=== PATIENT | female | born 1940 | race Caucasian/White ===

== ENCOUNTER 2019-11-29 16:11 | Inpatient (IN) | payer BC, OTHER, MEDICAID ==
[~2019-11-29] VITALS: Ht 160 cm; Wt 53.2 kg
[2019-11-29] VITALS (11 sets, daily range): BP systolic 90–115; BP diastolic 40–54
--- NOTE | 2019-11-29 16:11 | NUR ---
Received telephone call from Stella from [facility]. Stella to fax pt's POLST to ER.
--- NOTE | 2019-11-29 16:15 | NUR ---
Per EMS pt's daughter will bring in information about the pt's home medications.
[2019-11-29] MEDS ORDERED: IV NORMAL SALINE 500 ML BAG IV ONE (16:30)
--- NOTE | 2019-11-29 16:30 | NUR ---
THOMAS (which states FULL CODE) received via fax from Stella and handed to .
[2019-11-29 16:46] LABS: CARBON DIOXIDE 29 mmol/L (21-32); CHLORIDE 98 mmol/L (98-107); CREATININE 2.8 mg/dL (0.6-1.3); GLUCOSE 66 mg/dL (74-106); POTASSIUM 3.9 mmol/L (3.5-5.1); UREA NITROGEN, BLOOD 44 mg/dL (7-18)
[2019-11-29 16:47] LABS: BASOPHILS % (AUTO) 0.5 % (0.0-2.0); EOSINOPHILS # (AUTO) 0.1 K/uL (0.0-0.7); EOSINOPHILS % (AUTO) 0.8 % (0.0-7.0); HEMATOCRIT 29.5 % (31.2-41.9); HEMOGLOBIN 9.5 g/dL (10.9-14.3); LYMPHOCYTES # (AUTO) 1.4 K/uL (20.0-40.0); LYMPHOCYTES % (AUTO) 23.1 % (20.5-51.5); MEAN CORPUSCULAR HEMOGLOBIN 28.3 uug (24.7-32.8); MEAN CORPUSCULAR HGB CONC 32 g/dL (32.3-35.6); MONOCYTES # (AUTO) 0.8 K/uL (2.0-10.0); MONOCYTES % (AUTO) 13.3 % (0.0-11.0); NEUTROPHILS # (AUTO) 3.9 K/uL (1.8-8.9); NEUTROPHILS % (AUTO) 62.3 % (38.5-71.5); PLATELET COUNT (AUTO) 317 K/uL (179-408); RED BLOOD CELL COUNT(AUTO) 3.35 MIL/uL (3.63-4.92); WHITE BLOOD COUNT (AUTO) 6.3 K/uL (3.8-11.8)
[2019-11-29 16:48] LABS: *BILIRUBIN,URIN 1+ (NEGATIVE); *BLOOD, URINE NEGATIVE (NEGATIVE); *CLARITY,URINE SLIGHTLY CLOUDY (CLEAR); *COLOR,URINE AMBER (YELLOW); *KETONES,URINE NEGATIVE (NEGATIVE); *UROBILINOGEN,URINE 0.2 E.U./dl (NORMAL); LEUKOCYTE ESTERASE ,URINE NEGATIVE (NEGATIVE); NITRITE, URINE NEGATIVE (NEGATIVE); UGLUCOSE NEGATIVE (NEGATIVE)
[2019-11-29 16:52] LABS: ALANINE AMINOTRANSFERASE 33 U/L (14-59); ALKALINE PHOSPHATASE 77 U/L (50-136); ASPARTATE AMINOTRANSFERASE 31 U/L (15-37); BILIRUBIN,DIRECT 0.2 mg/dL (0.0-0.2); BILIRUBIN,TOTAL 0.6 mg/dL (0.2-1.0); TOTAL PROTEIN, SERUM 6.6 g/dL (6.4-8.2)
[2019-11-29 17:06] LABS: BACTERIA,URINE MANY /HPF (NONE SEEN); MUCUS,URINE MODERATE /LPF (0-FEW); SQUAMOUS EPITHELIAL CELL,UR FEW /HPF (NONE SEEN); URINE AMORPHOUS URATE MODERATE /HPF; WBC,URINE 0-3 /HPF (0-3)
--- NOTE | 2019-11-29 17:28 | NUR ---
EPIC panel call requested, awaiting call back from Cr[facility]
--- NOTE | 2019-11-29 17:58 | NUR ---
Daughter at bedside accompanying patient.
--- NOTE | 2019-11-29 18:10 | NUR ---
Pt's daughter states she forgot pt's home medication list at home, she will go home later and get it.
[2019-11-29] MEDS ORDERED: DOPamine IV DRIP 400 MG/250ML 250 ML ONE (18:24)
[2019-11-29] MEDS ORDERED: ALBUTEROL SULFATE 2.5 MG/3 ML NEBU NEB ONE (18:30)
[2019-11-29] MEDS ORDERED: DOPamine IV DRIP 400 MG/250ML 250 ML IV ONE (18:30)
[2019-11-29] MEDS ORDERED: IPRATROPIUM BROMIDE 0.5 MG/2.5 ML NEBU NEB ONE (18:30)
[2019-11-29] MEDS ORDERED: IPRATROPIUM BROMIDE 0.5 MG/2.5 ML NEBU ONE (18:33)
[2019-11-29] MEDS ORDERED: ALBUTEROL SULFATE 2.5 MG/3 ML NEBU ONE (18:33)
--- NOTE | 2019-11-29 20:14 | NUR ---
Report given to JAMAL Walker CCU
[2019-11-29] MEDS ORDERED: INSULIN REGULAR, HUMAN 300 UNIT/3 ML VIAL SQ PRN (21:30)
[2019-11-29] MEDS ORDERED: DEXTROSE 50% 50 ML DISP.SYRIN IV PRN (21:30)
[2019-11-29] MEDS ORDERED: BLOOD SUGAR DIAGNOSTIC 1 EACH STRIP VI SCH (21:30)
--- NOTE | 2019-11-29 21:30 | NUR ---
RECEIVED PT. OPENS HER EYES TO VERBAL STIMULI, RESTLESS, ALL EXTREMITIES ARE STRONG. ON O2 3L NC W/ O2 SAT OF 100%. ON DOPAMINE DRIP @ 4MCQ/KG/MIN ON LAC. BLOOD SUGAR BY ACCUCHECK ORDERED BY Matilda SMILEY, BS-40, D50% 1 AMP GIVEN ORDERED.D5NS @ 100CC/HR HUNG. DAUGHTER CAME & OBTAINED INFORMATIONS.
[2019-11-29] MEDS: IV D5/ 0.9% NACL 1,000 ML IV PRN (21:41)
[2019-11-29] MEDS ORDERED: CEFTRIAXONE /D5W 50ML IVPB **ER PYXIS IV ONE (21:56)
[2019-11-29] MEDS: CEFTRIAXONE 1 G in IV DEXTROSE 5% 50 ML IV SCH (22:10)
[2019-11-29] MEDS: LEVETIRACETAM 500 MG/5 ML LIQUID UDC NG SCH (22:15)
--- NOTE | 2019-11-29 22:16 | NUR ---
RECHECKED BS AFTER D50% GIVEN UP TO 117.
[2019-11-30] VITALS (65 sets, daily range): BP systolic 82–146; BP diastolic 31–111
[2019-11-30] MEDS: ALBUTEROL SULFATE 1.25 MG/3 ML NEBU NEB SCH ×4 (00:21→19:23)
[2019-11-30] MEDS: IPRATROPIUM BROMIDE 0.5 MG/2.5 ML NEBU NEB SCH ×4 (00:21→19:23)
[2019-11-30] MEDS: BLOOD SUGAR DIAGNOSTIC 1 EACH STRIP VI SCH ×5 (00:33→23:29)
--- NOTE | 2019-11-30 01:15 | NUR ---
MIDLINE INSERTED ON JANY BY MIGUEL NICE
[2019-11-30] MEDS ORDERED: DOPamine IV DRIP 400 MG/250ML 250 ML IV PRN (03:30)
[2019-11-30] MEDS: HALOPERIDOL 1 MG TABLET PO SCH ×3 (05:25→12:17)
--- NOTE | 2019-11-30 05:26 | NUR ---
AM CARE DONE. REPOSITIONED ON HER BACK W/ HOB ELEVATED.
[2019-11-30 05:36] LABS: CARBON DIOXIDE 28 mmol/L (21-32); CHLORIDE 101 mmol/L (98-107); CREATININE 1.9 mg/dL (0.6-1.3); GLUCOSE 119 mg/dL (74-106); PHOSPHOROUS 4.4 mg/dL (2.5-4.9); POTASSIUM 3.5 mmol/L (3.5-5.1); UREA NITROGEN, BLOOD 39 mg/dL (7-18)
[2019-11-30 05:46] LABS: MAGNESIUM 1.2 mg/dL (1.8-2.4)
[2019-11-30 06:47] LABS: BASOPHILS % (AUTO) 0.4 % (0.0-2.0); EOSINOPHILS # (AUTO) 0.1 K/uL (0.0-0.7); EOSINOPHILS % (AUTO) 1.1 % (0.0-7.0); HEMATOCRIT 30.2 % (31.2-41.9); LYMPHOCYTES # (AUTO) 1.1 K/uL (20.0-40.0); LYMPHOCYTES % (AUTO) 17.4 % (20.5-51.5); MEAN CORPUSCULAR HEMOGLOBIN 29.5 uug (24.7-32.8); MEAN CORPUSCULAR HGB CONC 33 g/dL (32.3-35.6); MEAN CORPUSCULAR VOLUME 89.3 fL (75.5-95.3); MONOCYTES # (AUTO) 1.4 K/uL (2.0-10.0); MONOCYTES % (AUTO) 23.5 % (0.0-11.0); NEUTROPHILS # (AUTO) 3.5 K/uL (1.8-8.9); NEUTROPHILS % (AUTO) 57.6 % (38.5-71.5); PLATELET COUNT (AUTO) 317 K/uL (179-408); RED BLOOD CELL COUNT(AUTO) 3.39 MIL/uL (3.63-4.92)
[2019-11-30 07:40] LABS: BAND % (MANUAL) 8 % (0-10); EOSINOPHILS % (MANUAL) 3 % (0-8); LYMPHOCYTES % (MANUAL) 22 % (20-40); MONOCYTES % (MANUAL) 19 % (2-10); NEUTROPHILS % (MANUAL) 48 % (42-75)
[2019-11-30] MEDS: FLUTICASONE/VILANTEROL 1 EACH BLST.W.DEV INH SCH (09:00)
[2019-11-30] MEDS: LEVETIRACETAM 500 MG/5 ML LIQUID UDC NG SCH ×2 (10:10→20:39)
--- NOTE | 2019-11-30 10:30 | NUR ---
Patient seen by Neurologist services, Dr. Hair, report given.
[2019-11-30] MEDS: MAGNESIUM SULFATE/D5W 100 ML IV SCH ×2 (10:44→11:54)
[2019-11-30] MEDS ORDERED: IV NS 1000 ML 1,000 ML IV ONE (12:00)
--- NOTE | 2019-11-30 13:00 | NUR ---
Patient restless and agitated climbing out of bed unsupervised, and at this very time patient forcefully removed, cruz catheter. Attending notified.
--- NOTE | 2019-11-30 13:30 | NUR ---
Attending N.P in the unit to see and examine patient, report given no new orders received.
[2019-11-30] MEDS ORDERED: LORAZEPAM 2 MG/1 ML VIAL IV PRN (15:30)
[2019-11-30] MEDS: IV D5/ 0.9% NACL 1,000 ML IV PRN ×2 (16:17→23:29)
--- NOTE | 2019-11-30 19:30 | NUR ---
rounds made patient in bed alert to name ,on and off follow simple commands other bhatia confused , breathing even and unlabored on 0xygen 3 liters /min nasal cannula saturation 95% ,100% rr 12 to 18.hob up .turned and reposition patient .off dopamine drip sbp >90 mm/hg . will continue to monitor v/s -bp .
[2019-11-30] MEDS: CEFTRIAXONE 1 G in IV DEXTROSE 5% 50 ML IV SCH (21:25)
--- NOTE | 2019-11-30 21:28 | NUR ---
patient getting OOB ,removing lines and removing equipment ,unable to educate patient confused and doesn't follow commands .Ativan given prn x1 see emar . continue with bilateral mittens and follow protocol .
--- NOTE | 2019-11-30 21:30 | NUR ---
patient incontinent of stool ,changed soiled linens and gown ,perineal care done ,send stool for OB, urine collected send for urine random /urine na /osmolality .
--- NOTE | 2019-11-30 22:00 | NUR ---
due Keppra po given and tolerated medication with diet [place].hob up . aspiration precaution observed .
[2019-11-30 22:07] LABS: *OCCULT BLOOD STOOL POSITIVE (NEGATIVE)
[2019-11-30 22:13] LABS: *CREATININE,URINE 51.2 mg/dL (30-125); *URINE TOTAL PROTEIN RANDOM 21.9 mg/dL (<150/24HR)
[2019-12-01] VITALS (15 sets, daily range): BP systolic 110–164; BP diastolic 46–77
[2019-12-01] MEDS: HALOPERIDOL 1 MG TABLET PO SCH (00:15)
[2019-12-01] MEDS: IPRATROPIUM BROMIDE 0.5 MG/2.5 ML NEBU NEB SCH ×4 (02:29→23:31)
[2019-12-01] MEDS: ALBUTEROL SULFATE 1.25 MG/3 ML NEBU NEB SCH ×4 (02:30→23:32)
--- NOTE | 2019-12-01 04:30 | NUR ---
am care done ,bath patient had another bm moderate in amt mixed with urine changed soiled linens and gown . turned and reposition . scds to bilateral lower extremities . oral are done .
[2019-12-01 05:07] LABS: BASOPHILS % (AUTO) 0.4 % (0.0-2.0); EOSINOPHILS % (AUTO) 0.7 % (0.0-7.0); HEMATOCRIT 27.7 % (31.2-41.9); HEMOGLOBIN 9.1 g/dL (10.9-14.3); LYMPHOCYTES # (AUTO) 0.7 K/uL (20.0-40.0); LYMPHOCYTES % (AUTO) 10.6 % (20.5-51.5); MEAN CORPUSCULAR HEMOGLOBIN 29.1 uug (24.7-32.8); MEAN CORPUSCULAR HGB CONC 33 g/dL (32.3-35.6); MEAN CORPUSCULAR VOLUME 88.4 fL (75.5-95.3); NEUTROPHILS # (AUTO) 5.1 K/uL (1.8-8.9); NEUTROPHILS % (AUTO) 74.3 % (38.5-71.5); PLATELET COUNT (AUTO) 315 K/uL (179-408); RED BLOOD CELL COUNT(AUTO) 3.13 MIL/uL (3.63-4.92); WHITE BLOOD COUNT (AUTO) 6.9 K/uL (3.8-11.8)
[2019-12-01 05:14] LABS: MAGNESIUM 1.4 mg/dL (1.8-2.4); PHOSPHOROUS 2.6 mg/dL (2.5-4.9); POTASSIUM 4.1 mmol/L (3.5-5.1)
[2019-12-01] MEDS: BLOOD SUGAR DIAGNOSTIC 1 EACH STRIP VI SCH ×4 (05:14→23:24)
[2019-12-01] MEDS ORDERED: Z GUARD REMEDY PASTE 57 GM TUBE TOP PRN (07:15)
[2019-12-01] MEDS: LEVETIRACETAM 500 MG/5 ML LIQUID UDC NG SCH ×2 (08:32→20:39)
[2019-12-01] MEDS: FLUTICASONE/VILANTEROL 1 EACH BLST.W.DEV INH SCH (08:33)
[2019-12-01] MEDS: Z GUARD REMEDY PASTE 57 GM TUBE TOP SCH ×2 (08:35→20:38)
[2019-12-01] MEDS ORDERED: INSULIN REGULAR, HUMAN 300 UNIT/3 ML VIAL SQ PRN ×2 (12:15→12:45)
[2019-12-01] MEDS ORDERED: DEXTROSE 50% 50 ML DISP.SYRIN IV PRN ×2 (12:15→12:45)
[2019-12-01] MEDS ORDERED: INSULIN REGULAR, HUMAN 300 UNITS/3 ML VIAL SQ PRN (12:15)
--- NOTE | 2019-12-01 12:25 | NUR ---
Neurology services, Dr. Hair in the unit to see and examine patient, report given see order hx.
[2019-12-01] MEDS: IV NS 1000 ML 1,000 ML IV PRN (13:38)
[2019-12-01] MEDS: MAGNESIUM SULFATE/D5W 100 ML IV SCH ×2 (13:39→15:04)
[2019-12-01] MEDS ORDERED: BLOOD SUGAR DIAGNOSTIC 1 EACH STRIP VI SCH (16:30)
--- NOTE | 2019-12-01 20:00 | NUR ---
RECEIVED PT RESPONDING VERBALLY W/ PERIODS OF CONFUSION & DISORIENTATION. ON O2 @ 3LNC W/ O2 SAT OF 100%. IVF D5NS @ 75CC/HR ON JANY MIDLINE. HEP LOCK ON LAC INTACT & PATENT. C-SCOPE SR. NOT IN ANY DISTRESS.
--- NOTE | 2019-12-01 21:00 | NUR ---
HAD BOWEL MOVEMENT & INCONTINENT OF URINE, BEDBATH GIVEN. REPOSITIONED ON HER SIDE WITH HOB ELEVATED.
[2019-12-01] MEDS: CEFTRIAXONE 1 G in IV DEXTROSE 5% 50 ML IV SCH (22:26)
--- NOTE | 2019-12-01 23:20 | NUR ---
CALLED Matilda SMILEY RE: PT SEVERE AGITATION W/ ORDERS.
[2019-12-01] MEDS: LORAZEPAM 1 MG TABLET PO PRN (23:38)
--- NOTE | 2019-12-01 23:38 | NUR ---
ATIVAN 1MG GIVEN PO WITH APPLE SAUCE., NO DIFFICULTY OF SWALLOWING NOTED.
[2019-12-01] MEDS ORDERED: HALOPERIDOL 0.5 MG TABLET ONE (23:42)
[2019-12-02] VITALS (7 sets, daily range): BP systolic 116–179; BP diastolic 47–71
[2019-12-02] MEDS: ALBUTEROL SULFATE 1.25 MG/3 ML NEBU NEB SCH ×4 (01:30→19:18)
[2019-12-02] MEDS: IPRATROPIUM BROMIDE 0.5 MG/2.5 ML NEBU NEB SCH ×4 (01:30→19:18)
--- NOTE | 2019-12-02 05:00 | NUR ---
AM CARE DONE REFUSED ORAL CARE. INCONTINENT OF URINE. REPOSITIONED SELF FOR COMFORTS.
[2019-12-02 05:03] LABS: BASOPHILS % (AUTO) 0.8 % (0.0-2.0); EOSINOPHILS # (AUTO) 0.1 K/uL (0.0-0.7); EOSINOPHILS % (AUTO) 1.2 % (0.0-7.0); HEMATOCRIT 25.4 % (31.2-41.9); HEMOGLOBIN 8.6 g/dL (10.9-14.3); LYMPHOCYTES # (AUTO) 0.7 K/uL (20.0-40.0); LYMPHOCYTES % (AUTO) 15.1 % (20.5-51.5); MEAN CORPUSCULAR HEMOGLOBIN 29.6 uug (24.7-32.8); MEAN CORPUSCULAR HGB CONC 34 g/dL (32.3-35.6); MEAN CORPUSCULAR VOLUME 87.5 fL (75.5-95.3); MONOCYTES # (AUTO) 0.5 K/uL (2.0-10.0); MONOCYTES % (AUTO) 10.6 % (0.0-11.0); NEUTROPHILS # (AUTO) 3.1 K/uL (1.8-8.9); NEUTROPHILS % (AUTO) 72.3 % (38.5-71.5); PLATELET COUNT (AUTO) 312 K/uL (179-408); WHITE BLOOD COUNT (AUTO) 4.3 K/uL (3.8-11.8)
[2019-12-02 05:11] LABS: CREATININE 0.7 mg/dL (0.6-1.3); MAGNESIUM 1.4 mg/dL (1.8-2.4); PHOSPHOROUS 1.8 mg/dL (2.5-4.9); POTASSIUM 3.1 mmol/L (3.5-5.1)
[2019-12-02] MEDS: IV NS 1000 ML 1,000 ML IV PRN (05:37)
[2019-12-02] MEDS: BLOOD SUGAR DIAGNOSTIC 1 EACH STRIP VI SCH ×3 (05:43→20:26)
--- NOTE | 2019-12-02 07:47 | NUR ---
Ambulance transportation arranged by [place] Tootie massey. will be olive picker at [address] To [facility] donor services technician aware and agreeable to with olive picker time and take patient for procedure upon arrival. trip # [phone].
[2019-12-02] MEDS: HALOPERIDOL 1 MG TABLET PO SCH ×2 (08:47→20:22)
[2019-12-02] MEDS: LEVETIRACETAM 500 MG/5 ML LIQUID UDC NG SCH ×2 (08:47→20:20)
[2019-12-02] MEDS: Z GUARD REMEDY PASTE 57 GM TUBE TOP SCH ×2 (08:48→20:23)
[2019-12-02] MEDS: FLUTICASONE/VILANTEROL 1 EACH BLST.W.DEV INH SCH (08:50)
--- NOTE | 2019-12-02 09:04 | NUR ---
Attending called to be notified of sustained sbp above 160's on pt's resting state. Orders to continue with current care plan received.
[2019-12-02] MEDS: POTASSIUM CHLORIDE 50 ML IV SCH ×2 (09:08→09:48)
[2019-12-02] MEDS: MAGNESIUM SULFATE/D5W 100 ML IV SCH ×2 (09:09→10:12)
--- NOTE | 2019-12-02 10:00 | NUR ---
Patient seen by cardiology services, Dr. Rehman new orders received. See order hx.
--- NOTE | 2019-12-02 11:08 | NUR ---
Patient been pickle processor by EMT to be taken to [facility] for MRI to the brain. vitals: HR of 50, 166/69, rr 13 and saturation of 100% on 2LNC. patient AAOx1. sleeping on off. IV Ml to RUE patent.
[2019-12-02] MEDS ORDERED: POTASSIUM CHLORIDE 20 MEQ POWDER PACKET PO ONE (11:30)
--- NOTE | 2019-12-02 11:31 | NUR ---
patient left unit losartan not available, receiving rn. post procedure informed to follow up with care plan.
--- NOTE | 2019-12-02 12:01 | NUR ---
WOUND CARE CONSULT: PT WAS TAKEN BY EMT FOR MRI. UNABLE TO SEE PT FOR SKIN ASSESSMENT AT THIS TIME. PER ADMISSION PHOTOS, THERE ARE DEEP TISSUE INJURIES OF SACRAL AREA, RT HIP AND BILATERAL HEELS WITH MULTIPLE AREAS OF SKIN DISCOLORATION PER ADMISSION PHOTOS, PRESENT ON ADMISSION. WILL SEE PT PT CONDITION PERMITS.
--- NOTE | 2019-12-02 13:00 | NUR ---
RECEIVED PATIENT FROM CCU. PATIENT ALERT AND ORIENTED X1. NO ACUTE DISTRESS NOTED. PATIENT WITH MITTENS DUE TO TRYING TO PULL OUT LINES. SITUATED PATIENT IN BED. BED IN LOWEST POSITION, SIDE RAILS UP X2, CALL LIGHT WITHIN REACH, BED ALARM ON. WILL CONTINUE TO MONITOR.
[2019-12-02] MEDS: LOSARTAN POTASSIUM 25 MG TABLET PO SCH (13:40)
[2019-12-02] MEDS ORDERED: NEUTRA PHOS PACKET PO ONE (15:45)
[2019-12-02] MEDS ORDERED: DEXTROSE 50% 50 ML DISP.SYRIN IV PRN (18:30)
--- NOTE | 2019-12-02 18:41 | NUR ---
PATIENT RESTED THROUGHOUT THE REST OF THE SHIFT. NO ACUTE DISTRESS NOTED. PATIENT DENIES PAIN AND DISCOMFORT. SAFETY MEASURES PROVIDED. DAUGHTER AT BEDSIDE. WILL ENDORSE TO ONCOMING NURSE.
[2019-12-02] MEDS: LORAZEPAM 1 MG TABLET PO PRN (19:04)
--- NOTE | 2019-12-02 19:20 | NUR ---
Received patient lying in bed. AAOx1, mainly confused and disoriented, with periods of anxiety noted. Redirected PRN. Hand mittens in place. Check for circulation. No signs or symptoms of SOB. On O2 at 2LPM via NC in place. Right upper arm midline intact and patent. IVF infusing. NSR on tele at 61/min. Safety measure initiated. Continue to monitor.
--- NOTE | 2019-12-02 20:01 | NUR ---
RECEIVED ORDER FROM ROBERT AVILEZ FOR TYLENOL 650MG Q6 HRS PRN FOR PAIN. ORDER CARRIED OUT.
[2019-12-02] MEDS: ACETAMINOPHEN 325 MG TABLET PO PRN (20:40)
[2019-12-02] MEDS: INSULIN REGULAR, HUMAN 300 UNIT/3 ML VIAL SQ PRN (20:46)
[2019-12-02] MEDS ORDERED: INSULIN REGULAR, HUMAN 300 UNIT/3 ML VIAL SQ PRN (21:00)
[2019-12-02] MEDS: CEFTRIAXONE 1 G in IV DEXTROSE 5% 50 ML IV SCH (21:02)
--- NOTE | 2019-12-02 21:16 | NUR ---
Patient BP was 179/47 around 1999, recheck again and was still 168/65. Informed JAVA GROOVY DEVELOPER daysi and stated that she will put in some orders.Awaiting for new order.
[2019-12-02] MEDS ORDERED: hydrALAZINE HCL 10 MG TABLET PO ONE (21:30)
[2019-12-02] MEDS: TEMAZEPAM 7.5 MG CAPSULE PO SCH (21:33)
[2019-12-03] VITALS: BP 159/54
[2019-12-03] MEDS: IPRATROPIUM BROMIDE 0.5 MG/2.5 ML NEBU NEB SCH ×4 (00:34→19:19)
[2019-12-03] MEDS: ALBUTEROL SULFATE 1.25 MG/3 ML NEBU NEB SCH ×4 (00:35→19:19)
[2019-12-03] MEDS: LORAZEPAM 1 MG TABLET PO PRN ×2 (03:48→21:13)
[2019-12-03 04:00] VITALS: BP 135/84
[2019-12-03] MEDS: IV NS 1000 ML 1,000 ML IV PRN (04:53)
--- NOTE | 2019-12-03 06:30 | NUR ---
AAOx1, mainly confused and disoriented, with periods of anxiety and restlessness. Lorazepam 1mg PO given PRN per order.Redirection and reorientation provided. Hand mittens in place. No signs or symptoms of pain SOB. On O2 at 2LPM via NC in place. Right upper arm midline intact and patent. IVF infusing. No adverse reaction noted from IV ABX. NSR on tele at 72/min. Safety measure maintained. Daughter at bedside.
[2019-12-03] MEDS: BLOOD SUGAR DIAGNOSTIC 1 EACH STRIP VI SCH ×4 (06:31→20:21)
--- NOTE | 2019-12-03 07:25 | NUR ---
RECEIVED PATIENT SLEEPING IN BED. NO ACUTE DISTRESS NOTED. DAUGHTER AT BEDSIDE. BED IN LOWEST POSITION, SIDE RAILS UP X2, CALL LIGHT WITHIN REACH, BED ALARM ON. WILL CONTINUE TO MONITOR.
[2019-12-03] MEDS: Z GUARD REMEDY PASTE 57 GM TUBE TOP SCH ×2 (09:22→23:46)
[2019-12-03] MEDS: LOSARTAN POTASSIUM 25 MG TABLET PO SCH (09:22)
[2019-12-03] MEDS: HALOPERIDOL 1 MG TABLET PO SCH ×2 (09:22→20:06)
[2019-12-03] MEDS: LEVETIRACETAM 500 MG/5 ML LIQUID UDC NG SCH ×2 (09:22→20:06)
[2019-12-03] MEDS: FLUTICASONE/VILANTEROL 1 EACH BLST.W.DEV INH SCH (09:22)
[2019-12-03 11:30] VITALS: BP 164/61
[2019-12-03] MEDS ORDERED: HALOPERIDOL 0.5 MG TABLET PO PRN (13:00)
--- NOTE | 2019-12-03 13:58 | NUR ---
WOUND CARE CONSULT: PT PRESENTS WITH MULTIPLE SKIN ISSUES INCLUDING RT HIP VESICULAR LESION. DEEP TISSUE IN EVOLUTION TO SACRUM, MULTIPLE AREAS OF BRUISING/DISCOLORATION AND DRY ABRASIONS, PRESENT ON ADMISSION. DEFER TO MD FOR RT HIP LESION. NURSERY SUPERVISOR LEFT [facility] FOR DR ATKINS. RECOMMENDATIONS MADE FOR WOUND CARE AND SKIN PROTECTION. DISCUSSED WITH NURSING STAFF. WOULD NOT RECOMMEND LOW AIRLOSS MATTRESS OVERLAY DUE TO SAFETY CONCERNS. PT MOVES HER LEGS ALMOST CONSTANTLY. WILL SEE PRN. IN AGREEMENT WITH PLAN OF CARE. Addendum: 12/03/19 at 1401 by TARAH FINLEY RN Amended: Links added.
[2019-12-03] MEDS ORDERED: LOSARTAN POTASSIUM 25 MG TABLET PO ONE (15:00)
[2019-12-03] MEDS ORDERED: ACET-2154 PO (15:12)
[2019-12-03] MEDS ORDERED: LORA-259 PO (15:13)
[2019-12-03] MEDS ORDERED: ASPI-612 PO (15:13)
[2019-12-03] MEDS ORDERED: GABA-532 PO (15:19)
[2019-12-03] MEDS ORDERED: METF-441 PO (15:19)
[2019-12-03] MEDS ORDERED: CLOP75TA33 PO (15:19)
[2019-12-03] MEDS ORDERED: HYDR12.5 PO (15:19)
[2019-12-03] MEDS ORDERED: METO25TA6 PO (15:19)
[2019-12-03] MEDS ORDERED: EZET10TA32 PO (15:19)
[2019-12-03] MEDS ORDERED: FURO20TA4 PO (15:19)
[2019-12-03] MEDS ORDERED: HALO2TAB PO (15:19)
[2019-12-03 16:00] VITALS: BP 164/46
--- NOTE | 2019-12-03 18:22 | NUR ---
PATIENT RESTED THROUGHOUT DAY. NO ACUTE DISTRESS NOTED. PATIENT CONFUSED THROUGHOUT SHIFT. PATIENT RESTLESS. PATIENT DENIES PAIN AND DISCOMFORT. SAFETY MEASURES PROVIDED. WILL ENDORSE TO ONCOMING NURSE.
--- NOTE | 2019-12-03 19:45 | NUR ---
PATIENT AWAKE WITH CONFUSION, IN BED SLEEPING INTERMITTENTLY, HAND MITTENS IN PLACE, CHECK FOR PLACEMENT AND CIRCULATION. PATIENT IN TELE MONITOR SINUS RHYTHM AT THIS TIME, PATIENT HAS NO COMPLAIN OF PAIN AT THIS TIME. PATIENT NOTED PULLING OUT MIDLINE, FREQUENT VISUAL CHECK DONE, PATIENT HAS EPISODE OF YELLING AND SCREAMING FOR NO REASON, BED ALARM IS ON. CONT TO MONITOR.
[2019-12-03] MEDS: INSULIN REGULAR, HUMAN 300 UNIT/3 ML VIAL SQ PRN (20:26)
[2019-12-03 20:27] VITALS: BP 175/65
[2019-12-03] MEDS: TEMAZEPAM 7.5 MG CAPSULE PO SCH (21:13)
--- NOTE | 2019-12-03 21:13 | NUR ---
PATIENT ALERT BUT CONFUSED, PATIENT TRIES TO CLIMB OUT OF BED, PULLING OUT IV LINES, RISK FOR FALL AND INJURY, PATIENT UNDIRECTABLE. PATIENT YELLS AND SCREAMS, ATTENDS ALL NEEDS, KEPT CLEAN AND DRY, GIVEN FLUIDS, GIVEN SNACKS STILL YELLS AND SCREAM. ADMINISTER ATIVAN 1MG, AND RESTORIL FOR INSOMNIA. WILL CONT TO MONITOR.
[2019-12-03] MEDS: ACETAMINOPHEN 325 MG TABLET PO PRN (21:14)
--- NOTE | 2019-12-03 21:14 | NUR ---
PATIENT COMPLAIN OF GEN BODY PAIN, GIVEN TYLENOL 650MG PO AWAITING FOR RESPONSE.
[2019-12-03] MEDS: CEFTRIAXONE 1 G in IV DEXTROSE 5% 50 ML IV SCH (22:32)
[2019-12-04] MEDS: IPRATROPIUM BROMIDE 0.5 MG/2.5 ML NEBU NEB SCH ×4 (00:42→22:39)
[2019-12-04] MEDS: ALBUTEROL SULFATE 1.25 MG/3 ML NEBU NEB SCH ×4 (00:42→22:39)
--- NOTE | 2019-12-04 02:45 | NUR ---
PATIENT SLEEP INTERMITTENTLY, PATIENT FIGHT HER SLEEP, HAD MULTIPLE TIMES CLIMBS OUT OF BED, PATIENT BANG AND HITS ARMS IN SIDE RAILS, YELLS AND SCREAMS FOR NO REASON, PATIENT BEHAVIOR UNREDIRECTABLE. PATIENT HAD BM RENDERED GOOD MK CARE, TX DONE ON MK AREA REDNESS, CONT TO REORIENT PATIENT, BED ALARM IS ON, CONT VISUAL CHECK, RISK FOR FALL AND INJURY.
[2019-12-04 04:00] VITALS: BP 154/68
[2019-12-04] MEDS: BLOOD SUGAR DIAGNOSTIC 1 EACH STRIP VI SCH ×4 (05:39→21:10)
--- NOTE | 2019-12-04 06:31 | NUR ---
PATIENT SLEEP INTERMITTENTLY, PATIENT FIGHTS HER SLEEP, NO SOB NO CHEST PAIN NOTED, TELE MONITOR SINUS RHYTHM, WITH EPISODE OF V TACH BUT NOT SUSTAINABLE. PATIENT HAS MULTIPLE EPISODE OF AGITATION, TRIES TO HIT STAFF, MULTIPLE TIME OF CLIMBING OUT OF BED, MULTIPLE TIME TRIES TO PULLED OUT IV LINES, FREQUENT VISUAL CHECK DONE, PATIENT ALSO HAS LOOSE BM X3 UNABLE TO COLLECT STOOL DUE TO TOO WATERY. GIVEN PATIENT FLUIDS AND TOLERATE WELL, RENDERED GOOD MK CARE. CONT TO MONITOR.
[2019-12-04 06:41] LABS: BASOPHILS # (AUTO) 0.1 K/uL (0.0-8.0); EOSINOPHILS # (AUTO) 0.1 K/uL (0.0-0.7); EOSINOPHILS % (AUTO) 0.9 % (0.0-7.0); HEMATOCRIT 29.7 % (31.2-41.9); HEMOGLOBIN 9.8 g/dL (10.9-14.3); LYMPHOCYTES % (AUTO) 16.2 % (20.5-51.5); MEAN CORPUSCULAR HEMOGLOBIN 28.3 uug (24.7-32.8); MEAN CORPUSCULAR HGB CONC 33 g/dL (32.3-35.6); MEAN CORPUSCULAR VOLUME 85.6 fL (75.5-95.3); MONOCYTES # (AUTO) 0.5 K/uL (2.0-10.0); MONOCYTES % (AUTO) 7.4 % (0.0-11.0); NEUTROPHILS # (AUTO) 4.7 K/uL (1.8-8.9); NEUTROPHILS % (AUTO) 74.5 % (38.5-71.5); PLATELET COUNT (AUTO) 420 K/uL (179-408); RED BLOOD CELL COUNT(AUTO) 3.48 MIL/uL (3.63-4.92); WHITE BLOOD COUNT (AUTO) 6.4 K/uL (3.8-11.8)
[2019-12-04 06:51] LABS: CREATININE 0.7 mg/dL (0.6-1.3); PHOSPHOROUS 1.9 mg/dL (2.5-4.9); POTASSIUM 3.2 mmol/L (3.5-5.1)
--- NOTE | 2019-12-04 07:16 | NUR ---
PATIENT MAG LEVEL 1.0, ENDORSED TO NEXT SHIFT.
[2019-12-04] MEDS: LEVETIRACETAM 500 MG/5 ML LIQUID UDC NG SCH ×2 (08:00→20:21)
--- NOTE | 2019-12-04 08:00 | NUR ---
Received pt. resting in chair alert oriented to self. With bilateral mittens on. Pt. is receiving breathing treatment and is on 2 L nc. Pt. appears in no distress. Pt. denies pain. Safety measures in place. call light within reach. will continue to monitor pt.
[2019-12-04] MEDS: Z GUARD REMEDY PASTE 57 GM TUBE TOP SCH ×2 (08:01→20:22)
[2019-12-04] MEDS ORDERED: HALOPERIDOL 1 MG TABLET PO PRN (08:15)
[2019-12-04] MEDS ORDERED: LOSARTAN POTASSIUM 50 MG TABLET PO SCH (09:00)
[2019-12-04] MEDS ORDERED: LOSARTAN POTASSIUM 25 MG TABLET PO SCH (09:00)
[2019-12-04] MEDS: HALOPERIDOL 1 MG TABLET PO SCH ×2 (09:05→20:21)
--- NOTE | 2019-12-04 09:10 | NUR ---
Came into room pt. removed both mittens and pulled out extension attachment for midline. Reinserted new extension attachment and flushed line. The line flushes well and has good blood return. Rewrapped midline with kerlix and put back mittens on. Will sit infront of pt.'s room to prevent pt. from pulling out midline. Reported critical lab value of Mg. to Doctor with no new orders at this time.
[2019-12-04] MEDS: FLUTICASONE/VILANTEROL 1 EACH BLST.W.DEV INH SCH (09:51)
[2019-12-04] MEDS: LORAZEPAM 1 MG TABLET PO PRN ×2 (10:04→23:13)
[2019-12-04 10:58] VITALS: BP 148/97
[2019-12-04] MEDS ORDERED: POTASSIUM CHLORIDE 20 MEQ TAB.PRT.SR PO ONE (11:30)
[2019-12-04] MEDS: MAGNESIUM SULFATE/D5W 100 ML IV SCH ×4 (12:04→15:49)
[2019-12-04] MEDS: ACETAMINOPHEN 325 MG TABLET PO PRN (12:24)
[2019-12-04] MEDS: INSULIN REGULAR, HUMAN 300 UNIT/3 ML VIAL SQ PRN ×3 (12:25→20:26)
[2019-12-04 15:06] VITALS: BP 142/72
[2019-12-04] MEDS ORDERED: NEUTRA PHOS PACKET PO ONE (16:30)
--- NOTE | 2019-12-04 17:52 | NUR ---
Pt. cooperative with plan of care. Pt. took all medication. PRN ativan given early in day for agitation. PRN haldol given for agitation requested by Dr. Francois. Pt. has been pulling off mittens and hitting hands against will chair. Reoriented pt. to unit and used calming measures. Midline still in place. pt on 1 L NC. Safety measures in place. call light within reach. will continue to monitor pt.
--- NOTE | 2019-12-04 20:00 | NUR ---
Received patient sitting in the will chair. 2:1 is by the door. A/O x1. Denies pain or SOB. TELE SR at 61. In O2 1L NC. Mittens are on for safety and because patient was pulling on lines. [facility] assessment done, noted multiple scratches on bilateral upper and lower ext. Midline on the right upper arm, patent and intact. Safety initiated. Call light within reach. Will closely monitor.
[2019-12-04] MEDS: TEMAZEPAM 7.5 MG CAPSULE PO SCH (20:21)
[2019-12-04] MEDS: LOSARTAN POTASSIUM 50 MG TABLET PO SCH (20:39)
[2019-12-04] MEDS: CEFTRIAXONE 1 G in IV DEXTROSE 5% 50 ML IV SCH (21:10)
--- NOTE | 2019-12-04 23:16 | NUR ---
Patient is restless, banging on the will chair. Ativan given. Will continue to monitor.
[2019-12-05] MEDS: LOSARTAN POTASSIUM 50 MG TABLET PO SCH ×2 (00:57→08:00)
[2019-12-05] MEDS: IPRATROPIUM BROMIDE 0.5 MG/2.5 ML NEBU NEB SCH ×3 (01:30→14:54)
[2019-12-05] MEDS: ALBUTEROL SULFATE 1.25 MG/3 ML NEBU NEB SCH ×3 (01:30→14:54)
--- NOTE | 2019-12-05 05:46 | NUR ---
Patient remains restless t/o shift. Gave patient mittens break t/o shift. Patient continues to pull lines but redirectable. TELE SR SB at 60. Remains O2 1L NC. Vital signs stable. Midline on the right upper arm, patent and intact. Good urine output. All meds given as ordered. All needs met.
[2019-12-05] MEDS: BLOOD SUGAR DIAGNOSTIC 1 EACH STRIP VI SCH ×3 (06:35→16:56)
[2019-12-05 06:39] VITALS: BP 176/74
[2019-12-05 06:40] LABS: CREATININE 0.8 mg/dL (0.6-1.3); POTASSIUM 3.9 mmol/L (3.5-5.1)
--- NOTE | 2019-12-05 06:45 | NUR ---
BP remains elevated. HR is at 66. made aware. New orders given.
[2019-12-05] MEDS ORDERED: hydrALAZINE HCL 10 MG TABLET PO SCH (07:00)
--- NOTE | 2019-12-05 07:41 | NUR ---
Patient resting comfortably in bed at this time. Stable condition. No signs of distress. Mittens on due to pulling of lines - Will assess and monitor throughout shift. 1:1 sitter at bedside for safety. No signs of agitation at this time. Patient appears calm. SR on telemetry. Safety measures implemented. Will continue to monitor closely throughout shift.
[2019-12-05] MEDS: FLUTICASONE/VILANTEROL 1 EACH BLST.W.DEV INH SCH (08:00)
[2019-12-05] MEDS: LEVETIRACETAM 500 MG/5 ML LIQUID UDC NG SCH (08:00)
--- NOTE | 2019-12-05 08:00 | NUR ---
Hydralazine administered @0730 by [facility] shift lead nurse. BP rechecked, continues to be elevated. Losartan 50 mg PO will be administered for routine morning medication. Will re-check
[2019-12-05] MEDS: Z GUARD REMEDY PASTE 57 GM TUBE TOP SCH (08:01)
[2019-12-05] MEDS: HALOPERIDOL 1 MG TABLET PO SCH (08:01)
[2019-12-05] MEDS: INSULIN REGULAR, HUMAN 300 UNIT/3 ML VIAL SQ PRN ×3 (08:04→16:58)
[2019-12-05 08:09] VITALS: BP 194/63
[2019-12-05 08:38] VITALS: BP 187/68
[2019-12-05 09:55] VITALS: BP_SYST 163; BP_SYST 166; BP_DIAS 63; BP_DIAS 88
[2019-12-05 10:57] VITALS: BP 164/69
[2019-12-05 15:01] VITALS: BP 137/61
--- NOTE | 2019-12-05 17:10 | NUR ---
1:1 sitter continues to be at bedside for safety. Safety measures implemented. Awaiting for home hospice for patient to arrive for patient to be properly discharged.
--- NOTE | 2019-12-05 18:10 | NUR ---
PATIENT DISCHARGED SAFELY AT THIS TIME WITH AMBULANCE. BEING TRANSFERRED HOME BY AMBULANCE (HOME WITH HOSPICE). MEDICATION RECONCILIATION GIVEN TO PATIENT (AMBULANCE). DISCHARGE PAPERWORK COMPLETED AND ALSO PROVIDED TO PATIENT. MIDLINE KATIE REMOVED, ID-BAND REMOVED, TELEMETRY BOX RETURNED. SAFETY MEASURES IMPLEMENTED. DISCHARGED FROM HOSPITAL SAFELY WITH AMBULANCE.
[2019-12-05] MEDS ORDERED: AMLODIPINE 5 MG TABLET PO SCH (21:00)
== END 2019-12-05 18:10 | disposition hospice, home (50) | DRG 682 ==
LOC: ER 16:11 → TELE3 18:19 → CCU 20:19 → TELE3 12-02 12:49
PROVIDERS: ADMIT Nurse Practitioner Acute Care; ATTEND Nurse Practitioner Acute Care
PROC: 05H933Z Insertion of Infusion Device into Right Brachial Vein, Percutaneous Approach (ICD-10-PCS; principal; 2019-11-30)
DX: N17.0 Acute kidney failure with tubular necrosis (principal); E43 Unspecified severe protein-calorie malnutrition; G93.41 Metabolic encephalopathy; E87.1 Hypo-osmolality and hyponatremia; N39.0 Urinary tract infection, site not specified; J96.10 Chronic respiratory failure, unspecified whether with hypoxia or hypercapnia; J98.11 Atelectasis; E86.0 Dehydration; J44.9 Chronic obstructive pulmonary disease, unspecified; Z86.73 Personal history of transient ischemic attack (TIA), and cerebral infarction without residual deficits; I10 Essential (primary) hypertension; F01.50 Vascular dementia, unspecified severity, without behavioral disturbance, psychotic disturbance, mood disturbance, and anxiety; R00.1 Bradycardia, unspecified; E10.9 Type 1 diabetes mellitus without complications; Z79.4 Long term (current) use of insulin; F17.210 Nicotine dependence, cigarettes, uncomplicated; D63.8 Anemia in other chronic diseases classified elsewhere; E10.649 Type 1 diabetes mellitus with hypoglycemia without coma; I65.29 Occlusion and stenosis of unspecified carotid artery; Z95.820 Peripheral vascular angioplasty status with implants and grafts; F29 Unspecified psychosis not due to a substance or known physiological condition; I70.0 Atherosclerosis of aorta; Z99.81 Dependence on supplemental oxygen; R56.9 Unspecified convulsions; I95.9 Hypotension, unspecified; L89.156 Pressure-induced deep tissue damage of sacral region
CPT/HCPCS: 36415; 51702; 70030-TC; 70551; 71045; 76770; 83605; 83735; 84100; 84156; 84300; 85025; 85730; 87040; 87086; 93005; 93307; 93880; 94640; 94664; A4217; A4663; C1758; G0378; J0696; J1265; J1815; J2060; J3475; J3480; J3490; J3590; J7030; J7042; J7060

== ENCOUNTER 2020-06-26 13:46 | Inpatient (IN) | payer OTHER, MEDICAID ==
[~2020-06-26] VITALS: Ht 165.1 cm; Wt 46.7 kg
[~2020-06-26 13:46] MED LIST: ACET-2154 PO; ASPI-612 PO; CLOP75TA33 PO; EZET10TA32 PO; FURO20TA4 PO; GABA-532 PO; HALO2TAB PO; HYDR12.5 PO; LORA-259 PO; METF-441 PO; METO25TA6 PO
--- NOTE | 2020-06-26 13:52 | NUR ---
Pt BIB [facility], [facility], reports that Pt's caregiver passed out leaving pt alone -- could not leave pt in place w/o supervision. Pt seems confused but did not seem to have any complaints or distress.
--- NOTE | 2020-06-26 14:02 | NUR ---
Pt's daughter was the sales supervisor w/syncope -- CEASAR REDDY [phone].
[2020-06-26 14:24] LABS: BASOPHILS % (AUTO) 0.6 % (0.0-2.0); EOSINOPHILS % (AUTO) 0.1 % (0.0-7.0); HEMOGLOBIN 12.8 g/dL (10.9-14.3); LYMPHOCYTES # (AUTO) 0.7 K/uL (20.0-40.0); LYMPHOCYTES % (AUTO) 8.7 % (20.5-51.5); MEAN CORPUSCULAR HEMOGLOBIN 27.2 uug (24.7-32.8); MEAN CORPUSCULAR HGB CONC 33 g/dL (32.3-35.6); MEAN CORPUSCULAR VOLUME 82.9 fL (75.5-95.3); MONOCYTES # (AUTO) 0.4 K/uL (2.0-10.0); MONOCYTES % (AUTO) 4.7 % (0.0-11.0); NEUTROPHILS # (AUTO) 6.6 K/uL (1.8-8.9); NEUTROPHILS % (AUTO) 85.9 % (38.5-71.5); PLATELET COUNT (AUTO) 272 K/uL (179-408); RED BLOOD CELL COUNT(AUTO) 4.71 MIL/uL (3.63-4.92); WHITE BLOOD COUNT (AUTO) 7.7 K/uL (3.8-11.8)
[2020-06-26] MEDS ORDERED: CLONIDINE HCL 0.1 MG TABLET PO ONE (14:30)
[2020-06-26] MEDS ORDERED: CLONIDINE HCL 0.1 MG TABLET ONE (14:31)
[2020-06-26 14:32] LABS: BILIRUBIN,DIRECT 0.1 mg/dL (0.0-0.2); BILIRUBIN,TOTAL 0.7 mg/dL (0.2-1.0); CREATININE 0.9 mg/dL (0.6-1.3); POTASSIUM 4.1 mmol/L (3.5-5.1); TOTAL PROTEIN, SERUM 6.2 g/dL (6.4-8.2)
[2020-06-26] MEDS ORDERED: LEVE500T9 PO (14:35)
[2020-06-26] MEDS ORDERED: TEMA7.5C PO (14:35)
[2020-06-26] MEDS ORDERED: ALBU1.25 NEB (14:35)
[2020-06-26] MEDS ORDERED: IPRA0.2S48 NEB (14:35)
[2020-06-26] MEDS ORDERED: BLOO-668 IN (14:35)
[2020-06-26] MEDS ORDERED: ALBU1.257 NEB (14:35)
[2020-06-26] MEDS ORDERED: INSU100V28 SQ (14:35)
[2020-06-26] MEDS ORDERED: HALO2TAB PO (14:35)
[2020-06-26] MEDS ORDERED: FLUT1BLS IH (14:35)
[2020-06-26] MEDS ORDERED: LOSA25TA27 PO (14:35)
[2020-06-26] MEDS ORDERED: PANTOPRAZOLE SODIUM 40 MG TABLET.DR PO ONE (14:45)
[2020-06-26] MEDS ORDERED: ASPIRIN 81 MG TAB.CHEW PO ONE (14:45)
[2020-06-26] MEDS ORDERED: PANTOPRAZOLE SODIUM 40 MG VIAL IV ONE (15:00)
[2020-06-26] MEDS ORDERED: ASPIRIN 81 MG TAB.CHEW ONE (15:25)
[2020-06-26] MEDS ORDERED: PANTOPRAZOLE SODIUM 40 MG VIAL ONE (15:26)
--- NOTE | 2020-06-26 16:13 | NUR ---
Called report to JAMAL Clarke. Will transport.
[2020-06-26 16:51] VITALS: BP 147/83
--- NOTE | 2020-06-26 17:11 | NUR ---
80 YEAR OLD FEMALE RECEIVED FROM ER VIA [facility] TO ROOM 306 FOR [place] ,PT IS NONVERBAL CALL LIGHT WITH IN REACH MD CALLED FOR ADMISSION ORDER
[2020-06-26] MEDS ORDERED: NITROGLYCERIN 0.4 MG/TAB BOTTLE SL PRN (17:30)
[2020-06-26] MEDS ORDERED: MORPHINE SULFATE 2 MG/1 ML DISP.SYRIN IV PRN (17:30)
[2020-06-26] MEDS ORDERED: ONDANSETRON 4 MG/2 ML VIAL IV PRN (17:30)
[2020-06-26] MEDS ORDERED: MAGNESIUM HYDROXIDE 30 ML LIQUID UDC PO PRN (17:30)
[2020-06-26] MEDS ORDERED: ACETAMINOPHEN 325 MG TABLET PO PRN (17:30)
[2020-06-26] MEDS ORDERED: Z GUARD REMEDY PASTE 57 GM TUBE TOP PRN (17:30)
[2020-06-26] MEDS ORDERED: hydrALAZINE HCL 10 MG TABLET PO PRN (17:45)
[2020-06-26] MEDS ORDERED: LORAZEPAM 1 MG TABLET PO PRN (17:45)
[2020-06-26] MEDS ORDERED: ALBUTEROL SULFATE 1.25 MG/3 ML NEBU NEB SCH (18:00)
--- NOTE | 2020-06-26 19:49 | NUR ---
Received patient awake. Patient shows no signs or symptom of distress at this time. Vital signs stable. NSR with PACs on tele monitor. Giovanni Murrieta NP notified of troponin trending up. No orders received. Obtained order to straight cath patient for U/A. Bed set to lowest position. Side rails X2 are up. Call light within reach. Will continue to monitor patient.
[2020-06-26 20:04] VITALS: BP 102/52
[2020-06-26] MEDS: levETIRAcetam 500 MG TABLET PO SCH (20:38)
[2020-06-26] MEDS: HALOPERIDOL 1 MG TABLET PO SCH (20:38)
[2020-06-26] MEDS ORDERED: TEMAZEPAM 7.5 MG CAPSULE PO PRN (21:00)
[2020-06-26 21:55] LABS: *BILIRUBIN,URIN 1+ (NEGATIVE); *CLARITY,URINE CLOUDY (CLEAR); *COLOR,URINE YELLOW (YELLOW); *KETONES,URINE NEGATIVE (NEGATIVE); *UROBILINOGEN,URINE 0.2 E.U./dl (NORMAL); LEUKOCYTE ESTERASE ,URINE NEGATIVE (NEGATIVE); NITRITE, URINE NEGATIVE (NEGATIVE); UGLUCOSE NEGATIVE (NEGATIVE)
[2020-06-26 21:57] LABS: *BLOOD, URINE TRACE LYSED (NEGATIVE)
[2020-06-26 22:25] LABS: BACTERIA,URINE NONE SEEN /HPF (NONE SEEN); RED BLOOD CELL CASTS,URINE FEW /LPF (NONE SEEN); WBC,URINE 0-3 /HPF (0-3)
[2020-06-26 22:26] LABS: SQUAMOUS EPITHELIAL CELL,UR FEW /HPF (NONE SEEN); URIC ACID CRYSTALS,URINE FEW /HPF (NONE SEEN)
[2020-06-26] MEDS: IPRATROPIUM BROMIDE 0.5 MG/2.5 ML NEBU NEB SCH (22:29)
[2020-06-26] MEDS: ALBUTEROL SULFATE 1.25 MG/3 ML NEBU NEB SCH (22:30)
[2020-06-27] VITALS: BP 122/78
[2020-06-27] MEDS: ALBUTEROL SULFATE 1.25 MG/3 ML NEBU NEB SCH ×4 (01:30→20:30)
[2020-06-27] MEDS: IPRATROPIUM BROMIDE 0.5 MG/2.5 ML NEBU NEB SCH ×4 (01:30→20:30)
[2020-06-27 04:06] VITALS: BP 124/82
--- NOTE | 2020-06-27 06:15 | NUR ---
Patient shows no signs or symptoms of distress at this time. Vital signs stable. Sinus bradycardia on tele monitor. Denies having any chest pain at this time. Will endorse patient to day shift nurse in stable condition.
[2020-06-27] MEDS: HALOPERIDOL 1 MG TABLET PO SCH ×2 (08:00→20:04)
[2020-06-27] MEDS: LOSARTAN POTASSIUM 25 MG TABLET PO SCH (08:00)
[2020-06-27] MEDS: ASPIRIN 81 MG TAB.CHEW PO SCH (08:00)
[2020-06-27] MEDS: FLUTICASONE/VILANTEROL 1 EACH BLST.W.DEV IH SCH (08:00)
[2020-06-27] MEDS: levETIRAcetam 500 MG TABLET PO SCH ×2 (08:01→20:04)
[2020-06-27 09:03] LABS: BASOPHILS % (AUTO) 0.9 % (0.0-2.0); EOSINOPHILS % (AUTO) 0.5 % (0.0-7.0); HEMATOCRIT 38.7 % (31.2-41.9); HEMOGLOBIN 12.9 g/dL (10.9-14.3); LYMPHOCYTES % (AUTO) 16.4 % (20.5-51.5); MEAN CORPUSCULAR HEMOGLOBIN 27.7 uug (24.7-32.8); MEAN CORPUSCULAR HGB CONC 33 g/dL (32.3-35.6); MEAN CORPUSCULAR VOLUME 82.9 fL (75.5-95.3); MONOCYTES # (AUTO) 0.3 K/uL (2.0-10.0); MONOCYTES % (AUTO) 5.8 % (0.0-11.0); NEUTROPHILS # (AUTO) 4.4 K/uL (1.8-8.9); NEUTROPHILS % (AUTO) 76.4 % (38.5-71.5); PLATELET COUNT (AUTO) 265 K/uL (179-408); RED BLOOD CELL COUNT(AUTO) 4.67 MIL/uL (3.63-4.92); WHITE BLOOD COUNT (AUTO) 5.8 K/uL (3.8-11.8)
[2020-06-27 09:17] LABS: MAGNESIUM 1.7 mg/dL (1.8-2.4); PHOSPHOROUS 3.3 mg/dL (2.5-4.9); POTASSIUM 4.1 mmol/L (3.5-5.1)
[2020-06-27 11:43] VITALS: BP 152/78
[2020-06-27 15:59] VITALS: BP 159/69
--- NOTE | 2020-06-27 19:30 | NUR ---
Received patient lying in bed. No signs or symptoms of acute distress at this time. threat monitoring analyst on showing sinus bradycardia. Patient denies chest pain at this time. Vital signs stable WNL. Bed locked and in lowest position. Bed alarm on and safety measures initiated. Will continue to monitor.
[2020-06-27 20:47] VITALS: BP 125/77
--- NOTE | 2020-06-27 23:10 | NUR ---
Patient's daughter Zelda Will called for an update about her mother and would like to speak with the doctor and case management in regards to discharge planning. She would like a call back in the morning to number on file. Will enforce to day shift.
[2020-06-28 01:02] VITALS: BP 128/64
[2020-06-28] MEDS: IPRATROPIUM BROMIDE 0.5 MG/2.5 ML NEBU NEB SCH ×3 (02:20→12:36)
[2020-06-28] MEDS: ALBUTEROL SULFATE 1.25 MG/3 ML NEBU NEB SCH ×3 (02:20→12:36)
[2020-06-28 05:32] VITALS: BP 139/86
[2020-06-28 06:00] LABS: BASOPHILS % (AUTO) 0.5 % (0.0-2.0); EOSINOPHILS % (AUTO) 0.3 % (0.0-7.0); HEMATOCRIT 36.9 % (31.2-41.9); HEMOGLOBIN 12.2 g/dL (10.9-14.3); LYMPHOCYTES # (AUTO) 0.9 K/uL (20.0-40.0); LYMPHOCYTES % (AUTO) 13.8 % (20.5-51.5); MEAN CORPUSCULAR HEMOGLOBIN 27.5 uug (24.7-32.8); MEAN CORPUSCULAR HGB CONC 33 g/dL (32.3-35.6); MONOCYTES # (AUTO) 0.5 K/uL (2.0-10.0); MONOCYTES % (AUTO) 7.4 % (0.0-11.0); NEUTROPHILS # (AUTO) 5.1 K/uL (1.8-8.9); PLATELET COUNT (AUTO) 259 K/uL (179-408); RED BLOOD CELL COUNT(AUTO) 4.45 MIL/uL (3.63-4.92); WHITE BLOOD COUNT (AUTO) 6.5 K/uL (3.8-11.8)
[2020-06-28 06:01] LABS: CREATININE 0.9 mg/dL (0.6-1.3); MAGNESIUM 1.8 mg/dL (1.8-2.4); PHOSPHOROUS 2.6 mg/dL (2.5-4.9); POTASSIUM 4.1 mmol/L (3.5-5.1)
[2020-06-28] MEDS: HALOPERIDOL 1 MG TABLET PO SCH (08:05)
[2020-06-28] MEDS: ASPIRIN 81 MG TAB.CHEW PO SCH (08:05)
[2020-06-28] MEDS: LOSARTAN POTASSIUM 25 MG TABLET PO SCH (08:05)
[2020-06-28] MEDS: levETIRAcetam 500 MG TABLET PO SCH (08:05)
[2020-06-28] MEDS: FLUTICASONE/VILANTEROL 1 EACH BLST.W.DEV IH SCH (08:15)
[2020-06-28 12:00] VITALS: BP 166/65
[2020-06-28 16:33] VITALS: BP 170/64
--- NOTE | 2020-06-28 18:00 | NUR ---
pt and her daughter refused the wound picture
--- NOTE | 2020-06-28 18:46 | NUR ---
Received patient awake. Patient shows no signs or symptom of distress at this time. Vital signs stable call light with in reach
[2020-06-28 19:16] VITALS: BP 183/75
--- NOTE | 2020-06-28 19:30 | NUR ---
dc orders received noted and carried out,dc heplock per md orders,pt left the facility via ambulances in stable condition
== END 2020-06-28 19:35 | disposition hospice, home (50) | DRG 280 ==
LOC: ER 13:46 → TELE3 16:17 → MEDSURG3 06-28 09:50
PROVIDERS: ADMIT Nurse Practitioner Acute Care; ATTEND Nurse Practitioner Acute Care
DX: I21.4 Non-ST elevation (NSTEMI) myocardial infarction (principal); E43 Unspecified severe protein-calorie malnutrition; Z68.1 Body mass index [BMI] 19.9 or less, adult; G93.49 Other encephalopathy; J96.10 Chronic respiratory failure, unspecified whether with hypoxia or hypercapnia; E87.6 Hypokalemia; E10.9 Type 1 diabetes mellitus without complications; F39 Unspecified mood [affective] disorder; F41.9 Anxiety disorder, unspecified; I10 Essential (primary) hypertension; J44.9 Chronic obstructive pulmonary disease, unspecified; R62.7 Adult failure to thrive; Z79.4 Long term (current) use of insulin; Z79.82 Long term (current) use of aspirin; Z86.73 Personal history of transient ischemic attack (TIA), and cerebral infarction without residual deficits; Z51.5 Encounter for palliative care; F01.50 Vascular dementia, unspecified severity, without behavioral disturbance, psychotic disturbance, mood disturbance, and anxiety; Z66 Do not resuscitate; E88.09 Other disorders of plasma-protein metabolism, not elsewhere classified; I34.0 Nonrheumatic mitral (valve) insufficiency
CPT/HCPCS: 36415; 70030-TC; 71045; 83735; 84100; 85025; 85730; 93005; 93307; 94640; 94664; A4663; C1758; C9113; G0378; J3590